=== PATIENT | female | born 1945 | race Caucasian/White ===

== ENCOUNTER 2017-07-28 13:44 | Observation (INO) | payer MEDICARE, BC ==
[2017-07-28 15:28] LABS: #Lymphocytes 1.8 thou/uL (1.20-3.40); #Monocytes 0.4 thou/uL (0.11-0.59); #Neutrophils 4.4 thou/uL (1.40-6.50); %Basophils 0.3 % (0.0-1.0); %Eosinophils 0.2 % (0.0-10.0); %Lymphocytes 26.9 % (21.0-51.0); %Monocytes 6.3 % (0.0-10.0); %Neutrophils 66.3 % (42.0-75.0); Hemoglobin 14.9 g/dL (12.0-16.0); Mean Corpuscular HGB CONC 35.8 g/dL (32.0-36.0); Mean Corpuscular Hemoglobin 31.5 pg (27.0-31.0); Mean Corpuscular Volume 87.9 fl (81.0-99.0); Mean Platelet Volume 8.6 fL (7.4-10.4); Platelet Count 220 thou/uL (130-400); RBC Distribution Width 11.5 % (11.5-14.5); Red Blood Cell (RBC) Count 4.71 mill/uL (4.20-5.40); White Blood Cell (WBC) Count 6.7 thou/uL (4.8-10.8)
--- NOTE | 2017-07-28 15:44 | RAD ---
CHEST 1 VIEW: HISTORY: Cough. COMPARISON: 10/10/10. FINDINGS: Cervical spine is magnified by projection. Pulmonary vascular congestion is unremarkable. Mediastin um is midline. There is no lobar consolidation or evidence of pneumothorax. IMPRESSION: No active cardiopulmonary abnormalities are demonstrated. POS: [facility]
[2017-07-28 15:48] LABS: ALT (SGPT) 37 U/L (8-55); AST (SGOT) 48 U/L (5-34); Albumin 4.5 g/dL (3.4-4.8); Alkaline Phosphatase 96 U/L (40-150); Anion Gap 18 mmol/L (10-20); BUN (Urea Nitrogen) 39 mg/dL (9.8-20.1); Bilirubin, Total 0.6 mg/dL (0.2-1.2); CK (CPK) 253 U/L (29-168); Calc. Creatinine Clearance 0 mL/min (70-130); Calcium 10.3 mg/dL (7.8-10.44); Carbon Dioxide 20 mmol/L (23-31); Chloride 99 mmol/L (98-107); Estimated GFR-MDRD 45; Globulin 4.5 g/dL (2.4-3.5); Glucose 107 mg/dL (83-110); Sodium 135 mmol/L (136-145)
[2017-07-28 15:54] LABS: Potassium 2.1 mmol/L (3.5-5.1)
[2017-07-28 15:58] LABS: Troponin I 0.034 ng/mL (< 0.028)
[2017-07-28] MEDS ORDERED: predniSONE 20 MG TAB ONE (16:16)
[2017-07-28 16:24] LABS: CKMB 11.2 ng/mL (0-6.6)
[2017-07-28] MEDS ORDERED: Potassium Bicarbonate/Cit Ac 25 MEQ TAB PO SCH (16:45)
[2017-07-28] MEDS ORDERED: Acetaminophen 650 MG Suppository PR PRN (19:51)
[2017-07-28] MEDS ORDERED: Acetaminophen 325 MG TAB PO PRN (19:51)
[2017-07-28] MEDS ORDERED: Ondansetron HCl/PF 4 MG/2 ML Vial IVP PRN (19:51)
[2017-07-28] MEDS ORDERED: Ondansetron ODT 4 MG TAB PO PRN (19:51)
[2017-07-28] MEDS ORDERED: Azithromycin 250 MG TAB PO SCH (19:51)
[2017-07-28] MEDS ORDERED: Bisacodyl 5 MG TAB PO PRN (19:51)
[2017-07-28] MEDS ORDERED: Guaifenesin DM 100-10/5 ML UDCUP PO PRN (19:51)
[2017-07-28] MEDS ORDERED: Potassium Chloride 40 MEQ in Sodium Chloride 0.9% 500 ML IVPB SCH (20:00)
--- NOTE | 2017-07-28 20:07 | HP ---
PRIMARY CARE PHYSICIAN: Rikki Mendes M.D. CHIEF COMPLAINT: Cough. HISTORY OF PRESENT ILLNESS: This is a 71-year-old white female with complaint a history of a cough f or about 1 week since she went on a cruise down to [place]. She had been noticing some shortness of b reath with ambulation to her kitchen in the week before that, but no coughing or other symptoms. Dur ing the cruise, she developed coughing productive of thick yellow sputum, also some worsening shortne ss of breath with ambulation. She developed nausea, dry heaving, some chest tightness and wheezing a nd loss of appetite. She has had some chills, but did not notice any high fevers. No sore throat. No orthopnea. The patient went to her primary care doctor four days ago, was started on doxycycline, but has not had any improvement, so she went to the emergency room. In the ER, she had a negative c hest x-ray, negative flu test. She was going to be sent out with azithromycin and some prednisone an jalil Edwards; after she had some improvement of symptoms with DuoNeb in the emergency room; however, her potassium came back low at 2.1, so she is being admitted for replacement. PAST MEDICAL HISTORY: Hypertension. PAST SURGICAL HISTORY: 1. Gastric bypass surgery in 2001. 2. Bilateral knee replacement. 3. Hysterectomy. 4. Appendectomy. 5. Cholecystectomy. PSYCHIATRIC HISTORY: Depression. FAMILY HISTORY: No significant family history. ALLERGIES: 1. BETA BLOCKERS. 2. CODEINE. 3. DIPHENHYDRAMINE. CURRENT MEDICATIONS: 1. Verapamil 120 mg daily. 2. Hyzaar 100/25 mg once a day. 3. Fluoxetine 80 mg daily. 4. Klor-Con sprinkles 10 mEq daily. 5. Zolpidem 10 mg at night as needed. 6. Calcium twice a day. 7. Multivitamin daily. 8. Vitamin B12 of 2500 every other day. 9. Probiotic daily. REVIEW OF SYSTEMS: Constitutional: No fevers. She has had some chills. Eyes: No double vision or blurred vision. ENT: She has had minimal congestion, no runny nose. No sore throat. Cardiovascular: No chest pain or palpitations. Pulmonary: See HPI. Gastrointestinal : No abdominal pain, see HPI for pertinent positives, no diarrhea or constipation. Genitourinary: No dysuria or hematuria. Musculoskeletal: No muscle aches or joint pains in the extremities. She h as had a little bit of midline soreness. Skin: No rashes or lesions noted. Neurologic: No numbnes s, tingling or focal weakness. PHYSICAL EXAMINATION: VITAL SIGNS: Blood pressure 108/74, pulse 87, respirations 18, O2 sat 97% on room air, temperature 9 7.7. GENERAL: This is a well-developed, well-nourished, white female in no apparent distress except for o ccasional coughing fits. HEENT: Pupils are equal, round, and reactive to light. Oropharynx clear without lesions, erythema o r exudate. NECK: Supple, no lymphadenopathy, no thyroid nodules or enlargement, no JVD. HEART: Regular rate and rhythm, no murmurs, rubs or gallops. LUNGS: Occasional wheeze and transmitted upper respiratory sounds diffusely with decent air movement , no crackles. ABDOMEN: Soft, nontender to palpation, normoactive bowel sounds, no hepatosplenomegaly or other mass es. EXTREMITIES: No clubbing, cyanosis or edema. SKIN: No rashes or other lesions noted. NEUROLOGIC: Patient moves all extremities with equal strength and she has no facial droop. LABORATORY DATA: CBC within normal limits. Complete metabolic panel notable for a potassium of 2.1, sodium of 135, carbon dioxide of 20, BUN of 39, creatinine of 1.17, AST mildly elevated at 45 and a total protein elevated at 9, CK-MB was elevated at 11.2 with a troponin in the barely indeterminate r don at 0.034. Creatine kinase was elevated at 253. X-RAY: I did review the chest x-ray done in the emergency room along with the radiologist's report. There is no cardiomegaly, no infiltrates, no acute cardiopulmonary process visualized. ASSESSMENT AND PLAN: 1. Acute bronchitis. Give patient DuoNebs q.4 hours as needed, prednisone 40 mg daily, Z-CHERELLE course and antitussives. 2. Hypokalemia. The patient has already gotten an oral dose of potassium in the emergency room. We will go ahead and give an IV dose of 40 mEq over 4 hours and then we will start on her twice a day 2 0 mEq tomorrow. We will recheck potassium in the morning. 3. Hyperproteinemia of the serum. We will do an SPEP on the serum. Patient does have some mildly e levation of renal function, so there is some concern for possibility of multiple myeloma or other sim ilar process. 4. Acute renal failure, uncertain patient's baseline creatinine, this very likely could be dehydrati on from the patient's vomiting; however, the concern with high protein remains. We will give patient IV fluids overnight and recheck in the morning. 5. Hypertension. We will resume patient's antihypertensive medications. CODE STATUS: I did discuss with the patient. She is a FULL CODE. Should she be incapacitated, her son, Humberto Rasmussen would be her medical decision maker.
[2017-07-28] MEDS: Famotidine 20 MG TAB PO SCH (20:10)
[2017-07-28] MEDS ORDERED: predniSONE 20 MG TAB PO SCH (21:00)
[2017-07-28] MEDS ORDERED: Losartan/Hydrochlorothiazide 100 mg/25 mg Tablet PO SCH (21:00)
[2017-07-28] MEDS ORDERED: Verapamil SR 120 MG TAB PO SCH (21:00)
[2017-07-28] MEDS: Benzonatate 100 MG CAP PO PRN (21:21)
[2017-07-28 22:13] VITALS: BMI 20.8
[2017-07-29 03:31] LABS: Bilirubin Negative (Negative); Blood, Urine Negative (Negative); Clarity CLEAR (Clear); Glucose, Urine (Dipstick) Negative (Negative); Leukocyte Negative (Negative); Nitrite Negative (Negative); Protein, Urine (Dipstick) Negative (Neg-Trace); Specific Gravity, Urine 1.015 (1.002-1.036); Urobilinogen 0.2 mg/dL (0.2-1.0); pH, Urine 6.5 (5.0-9.0)
[2017-07-29 03:56] VITALS: BP 121/64; TEMP 97.8
[2017-07-29 04:59] LABS: #Lymphocytes 0.9 thou/uL (1.20-3.40); #Neutrophils 2.5 thou/uL (1.40-6.50); %Basophils 0.3 % (0.0-1.0); %Eosinophils 0.2 % (0.0-10.0); %Monocytes 1.2 % (0.0-10.0); %Neutrophils 72.2 % (42.0-75.0); Hemoglobin 12.8 g/dL (12.0-16.0); Mean Corpuscular HGB CONC 35.5 g/dL (32.0-36.0); Mean Corpuscular Hemoglobin 31.5 pg (27.0-31.0); Mean Corpuscular Volume 88.6 fl (81.0-99.0); Mean Platelet Volume 8.9 fL (7.4-10.4); Platelet Count 192 thou/uL (130-400); RBC Distribution Width 11.4 % (11.5-14.5); Red Blood Cell (RBC) Count 4.07 mill/uL (4.20-5.40); White Blood Cell (WBC) Count 3.5 thou/uL (4.8-10.8)
[2017-07-29 05:12] LABS: Anion Gap 15 mmol/L (10-20); BUN (Urea Nitrogen) 41 mg/dL (9.8-20.1); Calc. Creatinine Clearance 43 mL/min (70-130); Calcium 9.6 mg/dL (7.8-10.44); Carbon Dioxide 20 mmol/L (23-31); Chloride 102 mmol/L (98-107); Estimated GFR-MDRD 47; Glucose 141 mg/dL (83-110); Sodium 134 mmol/L (136-145)
[2017-07-29 05:20] LABS: Potassium 2.8 mmol/L (3.5-5.1)
[2017-07-29] MEDS ORDERED: predniSONE 20 MG TAB PO SCH (08:00)
[2017-07-29] MEDS ORDERED: Potassium Chloride 20 MEQ TAB PO SCH ×3 (09:00→17:00)
[2017-07-29] MEDS ORDERED: Azithromycin 250 MG TAB PO SCH (09:00)
[2017-07-29] MEDS ORDERED: Verapamil SR 120 MG TAB PO SCH (09:00)
[2017-07-29] MEDS: Famotidine 20 MG TAB PO SCH (09:26)
[2017-07-29] MEDS: Benzonatate 100 MG CAP PO PRN (09:32)
--- NOTE | 2017-07-29 22:01 | DIS ---
DATE OF ADMISSION: 07/28/2017 DATE OF DISCHARGE: 07/29/2017 DISCHARGE DIAGNOSES: 1. Acute bronchitis. 2. Hypokalemia, improved. 3. Gastroenteritis, resolving. 4. Question of acute kidney injury on chronic kidney disease stage 2. 5. Hyponatremia, mild, likely secondary to hydrochlorothiazide. 6. Hypertension. CONSULTATIONS: None. PERTINENT LAB AND X-RAY FINDINGS: Sodium ranged between 134 to 135, potassium ranged between 2.1 to 2.8, creatinine ranged between 1.13 to 1.17. Estimated GFR ranged between 45 to 47, calcium ranged b etween 9.6 to 10.3, magnesium 2.1, AST 48, ALT 37, alkaline phosphatase 96, total CK 253, albumin 4.5 . CBC showed a white blood cell count ranged between 3.5 to 6.7. Influenza A and B antigen dated negative. Portable chest x-ray dated 07/28/2017 showed no acute cardiopulmonary process. HOSPITAL COURSE: Patient was observed on the telemetry unit after initially presenting with cough, s hortness of breath, and general weakness. Patient apparently had developed nausea, dry heaving, and some chest tightness with wheezing. Patient was diagnosed with a bronchitis and likely gastroenterit is initiated on therapy with doxycycline. Patient was noted on metabolic screening with hypokalemia with initial potassium of 2.1. Patient received oral potassium supplementation with overall improvem ent to 2.8. Patient recommended to continue potassium supplementation on an ongoing basis after disc harge. Patient also received IV fluids after mild acute kidney injury was noted by laboratory evalua tion. Patient encouraged to increased free water intake and hold home regimen of losartan and HCTZ f or approximately 48 hours after discharge. Overall, patient did remained clinically stable throughou t the hospital course and ready for discharge on 07/29/2017. DISCHARGE MEDICATIONS: 1. Tessalon Perles 100 mg p.o. t.i.d. p.r.n. 2. Calcium carbonate 500 mg p.o. daily. 3. Vitamin D3 of 2000 units p.o. daily. 4. Vitamin B12 of 2500 mcg sublingually q. 48 hours. 5. Doxycycline 100 mg 1 tab p.o. b.i.d. 6. Prozac 40 mg 1 tab p.o. daily. 7. Lactobacillus 1 capsule p.o. daily. 8. Losartan/HCTZ 100/25 mg 1 tab p.o. at bedtime hold x48 hours. 9. K-Dur 20 mEq p.o. b.i.d. 10. Prednisone 20 mg take 2 tablets p.o. daily x3 days, followed by 1 tab p.o. daily x3 days, follow ed by half a tab p.o. daily x3 days. 11. Verapamil SR 120 mg p.o. b.i.d. 12. Zolpimist 10 mg p.o. at bedtime p.r.n. FOLLOWUP: Patient may follow up with her primary care provider, Dr. Hiro Mendes within 7 days of mayra montalvo. CONDITION ON DISCHARGE: Stable. ACTIVITY: [place] ridge. DIET: Heart healthy. CODE STATUS: FULL. DISPOSITION: Home 07/29/2017.
[2017-08-01 13:14] LABS: Albumin 3.8 g/dL (2.9-4.4); Alpha 1 0.2 g/dL (0.0-0.4); Alpha 2 0.8 g/dL (0.4-1.0); Beta 0.7 g/dL (0.7-1.3); Gamma 2.1 g/dL (0.4-1.8); Globulin, Total 3.8 g/dL (2.2-3.9); M-Spike Not Observed g/dL (Not Observed)
== END 2017-07-29 16:22 | disposition home or self-care (01) ==
LOC: ERS 13:44 → 2SW 16:50
PROVIDERS: ADMIT Emergency Medicine; ATTEND Emergency Medicine
DX: J20.9 Acute bronchitis, unspecified (principal); E87.6 Hypokalemia; E87.1 Hypo-osmolality and hyponatremia; K52.9 Noninfective gastroenteritis and colitis, unspecified; I10 Essential (primary) hypertension; Z88.5 Allergy status to narcotic agent; Z88.8 Allergy status to other drugs, medicaments and biological substances; Z79.899 Other long term (current) drug therapy; Z98.84 Bariatric surgery status; Z90.710 Acquired absence of both cervix and uterus; Z90.49 Acquired absence of other specified parts of digestive tract; Z96.653 Presence of artificial knee joint, bilateral; Z98.890 Other specified postprocedural states
CPT/HCPCS: 71045; 80048; 80053; 81003; 82550; 82553; 83735; 84165; 84484; 85025 ×2; 87804 ×2; 94640; 96365; 96366 ×2; 97139; 99285; G0378; 36415; J3480; J7050; J7506; J7620

== ENCOUNTER 2021-06-08 10:55 | Outpatient (CLI) | payer MEDICARE, BC | END 2021-06-08 10:56 | disposition home or self-care (01) | LOC: BICCT 10:55 | PROVIDERS: ATTEND Internal Medicine | DX: R10.30 Lower abdominal pain, unspecified (principal) | CPT/HCPCS: 74177; 82565 ==

== ENCOUNTER 2024-01-10 10:17 | Outpatient (CLI) | payer MEDICARE | END 2024-01-10 10:18 | LOC: MRI 10:17 | PROVIDERS: ATTEND Orthopaedic Surgery | DX: M75.121 Complete rotator cuff tear or rupture of right shoulder, not specified as traumatic (principal); M19.011 Primary osteoarthritis, right shoulder; S43.431A Superior glenoid labrum lesion of right shoulder, initial encounter ==